=== PATIENT | male | born 1985 | race Two or more races ===

== ENCOUNTER 2024-12-16 07:10 | Emergency (ER) | payer MEDICARE, MEDICAID ==
[~2024-12-16] VITALS: Ht 170.2 cm; Wt 79.7 kg
[2024-12-16 07:16] VITALS: BP 150/89; PULSE 87; RESP 16; TEMP 98.1; O2SAT 97
== END 2024-12-16 07:30 | disposition left against medical advice (07) ==
LOC: ER 07:10
DX: R10.84 Generalized abdominal pain (principal); Z53.21 Procedure and treatment not carried out due to patient leaving prior to being seen by health care provider